=== PATIENT | male | born 1955 | race Two or more races ===

== ENCOUNTER 2017-08-17 11:51 | Emergency (ER) | payer MEDICAID, OTHER ==
[~2017-08-17] VITALS: Ht 175.3 cm; Wt 105.2 kg
[2017-08-17 13:29] LABS: Urine Bacteria FEW /hpf (None Seen); Urine Blood 3+ /uL (Negative); Urine Mucus FEW (None Seen); Urine Specific Gravity 1.025 (1.001-1.035); Urine WBC 20 /hpf (0 - 3)
[2017-08-17 17:20] VITALS: BP 107/61
== END 2017-08-17 17:46 | disposition home or self-care (01) ==
LOC: ER 11:59
DX: N39.0 Urinary tract infection, site not specified (principal); F17.210 Nicotine dependence, cigarettes, uncomplicated
CPT/HCPCS: 81001